=== PATIENT | female | born 1955 | race Caucasian/White ===

== ENCOUNTER → 2020-12-28 | Outpatient (CLI) | payer MEDICARE, OTHER ==
[2020-12-28 11:00] LABS: HEMATOCRIT 48.5 % (37.0-47.0); HEMOGLOBIN 16.5 g/dL (12.5-16.0)
== END ==
LOC: LAB 10:44
PROVIDERS: Family Medicine
DX: E83.119 Hemochromatosis, unspecified (principal)

== ENCOUNTER → 2021-11-23 | Outpatient (CLI) | payer MEDICARE, OTHER ==
[2021-11-23 13:37] LABS: HEMATOCRIT 47.2 % (37.0-47.0); HEMOGLOBIN 15.6 g/dL (12.5-16.0)
== END ==
LOC: LAB 13:28
PROVIDERS: Family Medicine
DX: E83.110 Hereditary hemochromatosis (principal)